=== PATIENT | male | born 1960 | race American Indian/Alaskan Native ===

== ENCOUNTER 2017-03-05 23:44 | Emergency (ER) | payer MEDICAID ==
[2017-03-06 00:01] VITALS: BP 132/87
--- NOTE | 2017-03-06 00:55 | XRay Report ---
FINAL REPORT PROCEDURE: XR FINGER(S) 2 RT TECHNIQUE: RIGHT index finger radiographs, including AP, lateral, and oblique views. HISTORY: injury rt finger index COMPARISON: No prior studies are available for comparison. FINDINGS: Fracture (s) and/or Dislocation(s): None . Alignment: Normal. Joint space(s): Normal . Soft tissues: Mild soft tissue swelling over the index finger. There is a bandage in this region, this does obscure some detail. Bone mineralization: Normal . IMPRESSION: No evidence of an acute fracture or dislocation. Mild soft tissue swelling over the 2nd digit.
--- NOTE | 2017-03-06 00:56 | XRay Report ---
FINAL REPORT PROCEDURE: XR HAND 2V RT TECHNIQUE: RIGHT hand radiographs, AP, lateral, and oblique views. CPT [id number] HISTORY: injury rt hand COMPARISON: No prior studies are available for comparison. FINDINGS: Fracture (s) and/or Dislocation(s): None . Alignment: Normal . Joint space(s): Normal . Soft tissues: Mild soft tissue swelling over the 2nd digit. There is some bandaging material identified overlying this region.. Bone mineralization: Normal . Foreign bodies: None . IMPRESSION: There is no evidence of an acute fracture or dislocation. Mild soft tissue swelling over the 2nd digit right hand..
[2017-03-06] MEDS ORDERED: BOOSTRIX IM ONE (04:23)
[2017-03-06] MEDS ORDERED: MOTRIN PO ONE (04:24)
[2017-03-06] MEDS ORDERED: TRIPLE ANTIBIOTIC TP ONE (04:24)
--- NOTE | 2017-03-06 04:25 | Emergency Department Report ---
ED Laceration HPI - HPI Chief Complaint: Laceration/Recheck/Suture Stated Complaint: R INDEX FINGER LACERATION Time Seen by Provider: 03/06/17 04:22 Occurred When: Today Severity: moderate Tetanus Status: Not up to Date Laceration Symptoms: Yes Pain, No Foreign Body Sensation, No Numbness, No Weakness Other History: 56-year-old male past medical history diabetes presents with complaint of laceration to right index finger. Patient states he was trimming his hedges in his yard with an electric window trimmer apprentice when it slipped and grazed his right inner index finger. 2 visible lacerations at base of right index finger and between PIP and MCP. Patient unaware of tetanus status. Denies any other injuries. ED Review of Systems ROS: Stated complaint: R INDEX FINGER LACERATION Other details as noted in HPI Constitutional: denies: chills, fever Eyes: denies: eye pain, eye discharge, vision change ENT: denies: ear pain, throat pain Respiratory: denies: cough, shortness of breath, wheezing Cardiovascular: denies: chest pain, palpitations Endocrine: no symptoms reported Gastrointestinal: denies: abdominal pain, nausea, diarrhea Genitourinary: denies: urgency, dysuria Musculoskeletal: denies: back pain, joint swelling, arthralgia Skin: denies: rash, lesions Neurological: denies: headache, weakness, paresthesias Psychiatric: denies: anxiety, depression Hematological/Lymphatic: denies: easy bleeding, easy bruising ED Past Medical Hx - Past Medical History Hx Hypertension: No Hx Diabetes: Yes (2010) Hx GERD: Yes - Surgical History Past Surgical History?: No - Social History Smoking Status: Never Smoker Substance Use Type: None - Medications Home Medications: Home Medications Medication Instructions Recorded Confirmed Last Taken Type Aspirin [Aspirin BABY CHEW TAB] 81 mg PO ONCE 03/20/14 03/20/14 03/19/14 History Cephalexin [Keflex] 500 mg PO Q12HR #10 cap 03/06/17 Unknown Rx Ibuprofen [Motrin] 600 mg PO Q8H PRN #25 tablet 03/06/17 Unknown Rx Neomycn/Baci Zn/Pmyx Bs/Pramox 28 gm TP BID #1 oint...g. 03/06/17 Unknown Rx [Triple Antibioti-Pain Rlf Oint] Laceration Physical Exam - Exam General: Vital signs noted. No distress. Alert and acting appropriately. Wound Length (cm): 3 Laceration Location: Upper Extremity (right index finger) Laceration Exam: Yes Normal Distal CMS (capillary refill less than one second all fingers), No Foreign Body, No Exposed Tendon, Vessel, or Nerve, No Tendon Injury ED Course Vital Signs 03/05/17 23:58 Temperature 98 F Pulse Rate 78 Respiratory 16 Rate Blood Pressure 132/87 O2 Sat by Pulse 96 Oximetry - Laceration /Wound Repair Right Distal Finger Wound Location: upper extremity (right distal index finger) Wound Length (cm): 5 (2 lacerations at MCP and PIP skin areas right index finger ) Wound's Depth, Shape: superficial Wound Explored: clean Irrigated w/ Saline (ccs): 500 Betadine Prep?: Yes Anesthesia: Lidocaine w/ Epi Volume Anesthetic (ccs): 3 Wound Debrided: minimal Wound Repaired With: sutures Suture Size/Type: 5:0, 4:0, proline Number of Sutures: 7 Layer Closure?: No Sterile Dressing Applied?: Yes (Triple Antibiotic ointment with sterile gauze over and finger splint) Progress: Area infiltrated with lidocaine, good local anesthesia achieved. Wounds approximated well. There were 2 separate lacerations 1 closer to the MCP joint on the volar aspect of the finger and the other one overlying the PIP joint approximately 2-3 cm each. Wound edges approximated well with sutures. 7 4-0 Sutures were placed total. Procedure tolerated well. Good distal sensation and capillary refill on exam ED Medical Decision Making - Medical Decision Making A/P: Right index finger Laceration 1-sutures to be removed in 10 days 2-tetanus updated. Keflex twice a day 5 days 3-Motrin when necessary, triple antibiotic ointment 4- pt advised to return to the ED for any fevers chills pus drainage erythema at site of laceration Critical care attestation.: If time is entered above; I have spent that time in minutes in the direct care of this critically ill patient, excluding procedure time. ED Disposition Clinical Impression: Finger laceration Qualifiers: Encounter type: initial encounter Finger: index finger Damage to nail status: without damage Foreign body presence: without foreign body Laterality: right Qualified Code(s): S61.210A - Laceration without foreign body of right index finger without damage to nail, initial encounter Disposition: TO HOME OR SELFCARE Is pt being admited?: No Does the pt Need Aspirin: No Condition: Stable Instructions: Finger Laceration (ED), Suture Care (ED) Additional Instructions: Sutures to be removed in approximately 10 days Prescriptions: Cephalexin [Keflex] 500 mg PO Q12HR #10 cap Ibuprofen [Motrin] 600 mg PO Q8H PRN #25 tablet PRN Reason: Pain Neomycn/Baci Zn/Pmyx Bs/Pramox [Triple Antibioti-Pain Rlf Oint] 28 gm TP BID #1 oint...g. Forms: Work/School Release Form(ED) Time of Disposition: 05:37
== END 2017-03-06 05:50 | disposition home or self-care (01) ==
LOC: ED 23:44
DX: S61.210A Laceration without foreign body of right index finger without damage to nail, initial encounter (principal); E11.9 Type 2 diabetes mellitus without complications; K21.9 Gastro-esophageal reflux disease without esophagitis; Z79.82 Long term (current) use of aspirin; W26.8XXA Contact with other sharp object(s), not elsewhere classified, initial encounter; Y93.89 Activity, other specified; Y99.9 Unspecified external cause status; Y92.89 Other specified places as the place of occurrence of the external cause
CPT/HCPCS: 90471; 90715; A6250

== ENCOUNTER 2017-03-21 10:45 | Emergency (ER) | payer MEDICAID ==
[2017-03-21 10:55] VITALS: BP 112/72
--- NOTE | 2017-03-21 11:23 | Emergency Department Report ---
Entered by JAMAR CAROLINA, acting as scribe for SLAVA ALBERTS NP. Suture/Staple Removal - HPI Chief Complaint: Laceration/Recheck/Suture Stated Complaint: RT INDEX FINGER STITCHES REMOVED Time Seen by Provider: 03/21/17 11:10 When Sutures or [place] Placed: 2 weeks ago Wound Location: 7 sutures in right hand ED Review of Systems ROS: Stated complaint: RT INDEX FINGER STITCHES REMOVED Other details as noted in HPI Comment: All other systems reviewed and negative Constitutional: denies: chills, fever Skin: other (right hand 7 sutures ) ED Past Medical Hx - Past Medical History Hx Hypertension: No Hx Diabetes: Yes (2010) Hx GERD: Yes - Surgical History Past Surgical History?: No - Social History Smoking Status: Never Smoker Substance Use Type: None - Medications Home Medications: Home Medications Medication Instructions Recorded Confirmed Last Taken Type Aspirin [Aspirin BABY CHEW TAB] 81 mg PO ONCE 03/20/14 03/20/14 03/19/14 History Cephalexin [Keflex] 500 mg PO Q12HR #10 cap 03/06/17 Unknown Rx Ibuprofen [Motrin] 600 mg PO Q8H PRN #25 tablet 03/06/17 Unknown Rx Neomycn/Baci Zn/Pmyx Bs/Pramox 28 gm TP BID #1 oint...g. 03/06/17 Unknown Rx [Triple Antibioti-Pain Rlf Oint] Suture Removal Exam - Exam General: Vital signs noted. No distress. Alert and acting appropriately. Wound: No Pathologic Erythema, No Tenderness, No Drainage, No Pus, No Wound Dehiscence Other Systems: All other systems reviewed and are unremarkable. ED Course Vital Signs 03/21/17 10:51 Temperature 98.5 F Pulse Rate 78 Respiratory 16 Rate Blood Pressure 112/72 Blood Pressure 112/72 [Left] O2 Sat by Pulse 100 Oximetry - Procedure Description Procedures done: sutures x 7 dc'd intact wound healed edges well approximated no draingage no bleeding no pain no symptoms of infected no muscle or tendon involvement . rom intact ,crty <3 sec pt tolerated procedure with minimal distress Critical care attestation.: If time is entered above; I have spent that time in minutes in the direct care of this critically ill patient, excluding procedure time. ED Disposition Clinical Impression: Visit for suture removal Disposition: DC-01 TO HOME OR SELFCARE Is pt being admited?: No Does the pt Need Aspirin: No Condition: Good Instructions: Suture Removal (ED) Referrals: PRIMARY CARE, [Primary Care Provider] - 3-5 Days Forms: Work/School Release Form(ED) Time of Disposition: 11:22 This documentation as recorded by the GE may ELIZABETH,accurately reflects the service I personally performed and the decisions made by me, SLAVA ALBERTS, PEE.
== END 2017-03-21 11:33 | disposition home or self-care (01) ==
LOC: ED 10:45
DX: Z48.02 Encounter for removal of sutures (principal); E11.9 Type 2 diabetes mellitus without complications; K21.9 Gastro-esophageal reflux disease without esophagitis